=== PATIENT | female | born 1980 | race Caucasian/White ===

== ENCOUNTER 2016-08-21 13:27 | Emergency (ER) | payer OTHER ==
[~2016-08-21] VITALS: Ht 167.6 cm; Wt 68.9 kg
[2016-08-21 13:33] VITALS: BP 100/68
--- NOTE | 2016-08-21 13:57 | RAD ---
Left wrist, 4 views, 08/21/2016: History: Fall, pain There is a fracture of the distal left radius. The major fracture fragments are not significantly displaced. The fracture involves the articular surface of the distal radius. No other fracture or dislocation is identified. A sclerotic focus in the proximal fourth metacarpal is most likely a bone island. IMPRESSION: Nondisplaced fracture of the distal left radius with intra-articular extension.
--- NOTE | 2016-08-21 17:58 | ED.ADGEN ---
Past History Past Medical History: No Pertinent History Past Surgical History: Tonsillectomy Alcohol Use: None Drug Use: None Adult General Chief Complaint Chief Complaint Left wrist pain HPI HPI Patient is a 36-year-old right-handed female presents with left wrist pain after falling reports with a left outstretched hand and landing on left wrist. Patient with subtle deformity noted over distal radius with tenderness swelling and pain with wrist range of motion. Denies elbow pain or tenderness. No motor weakness or loss of sensation. No other acute symptoms or complaints. Review of Systems Review of Systems Review symptoms as per history of present illness. All other review symptoms are negative. Allergies Allergies Allergies Coded Allergies Type Severity Reaction Last Updated Verified No Known Drug Allergies 08/21/16 No Physical Exam Physical Exam Constitutional: Well developed, well nourished, no acute distress, non-toxic appearance. Extremities: Brisk, subtle deformity of distal radius, with bony tenderness and swelling. Neurologic: Alert and oriented X 3, left wrist, no motor weakness or loss of sensation. Psychologic: Affect normal, judgement normal, mood normal. Current Patient Data Vital Signs Vital Signs Date Time Temp Pulse Resp B/P (MAP) Pulse Ox O2 Delivery O2 Flow Rate FiO2 08/21/16 14:55 55 18 99 08/21/16 13:33 98.2 Room Air EKG EKG [] Radiology/Procedures Radiology/Procedures [Left wrist: Nondisplaced fracture of left distal wrist.] Course & Med Decision Making Course & Med Decision Making Pertinent Labs and Imaging studies reviewed. (See chart for details) [Patient is neurovascularly intact. Placed in splint and referred to local orthopedic physician. Pain prescription provided.] Final Impression Final Impression [1. Left wrist fracture ] Problems: Dragon Disclaimer Dragon Disclaimer This electronic medical record was generated, in whole or in part, using a voice recognition dictation system. SOLEDAD CAMPUZANO DO August 21, 2016 17:58
== END 2016-08-21 14:55 | disposition home or self-care (01) ==
LOC: ER 13:27
DX: S52.502A Unspecified fracture of the lower end of left radius, initial encounter for closed fracture (principal); W19.XXXA Unspecified fall, initial encounter; Y93.89 Activity, other specified; Y99.8 Other external cause status; Y92.89 Other specified places as the place of occurrence of the external cause
CPT/HCPCS: 29125; 73110; 99284-25